=== PATIENT | male | born 1965 | race Caucasian/White ===

== ENCOUNTER 2022-06-16 10:13 | Inpatient (IN) | payer MEDICAID ==
[~2022-06-16] VITALS: Ht 175.3 cm; Wt 88.0 kg
[2022-06-16 10:38] LABS: BASOPHILS # (AUTO) 0.1 X10'3 (0-0.2); BASOPHILS % (AUTO) 1.4 % (0-1); EOSINOPHILS # (AUTO) 0.1 X10'3 (0-0.9); EOSINOPHILS % (AUTO) 2.5 % (0-6); HEMATOCRIT 47.6 % (42.0-52.0); HEMOGLOBIN 16.4 g/dl (14.0-17.9); LYMPHOCYTES # (AUTO) 1.5 X10'3 (1.1-4.8); LYMPHOCYTES % (AUTO) 27.5 % (21-51); MEAN CORPUSCULAR HEMOGLOBIN 33.4 PG (27.0-31.0); MEAN CORPUSCULAR HGB CONC 34.5 g/dL (33.0-36.5); MEAN CORPUSCULAR VOLUME 96.6 FL (78-98); MEAN PLATELET VOLUME 7.7 FL (7.4-10.4); MONOCYTES # (AUTO) 0.6 X10'3 (0-0.9); MONOCYTES % (AUTO) 10.9 % (2-12); NEUTROPHILS # (AUTO) 3.2 X10'3 (1.8-7.7); NEUTROPHILS % (AUTO) 57.7 % (42-75); PLATELET COUNT 319 X10'3 (140-440); RED BLOOD COUNT 4.92 X10'6 (4.70-6.10); WHITE BLOOD COUNT 5.6 X10'3 (4.5-11.0)
[2022-06-16 10:49] LABS: ALANINE AMINOTRANSFERASE 62 U/L (12-78); ALBUMIN 4.3 G/DL (3.4-5.0); ALBUMIN/GLOBULIN RATIO 1.3 (1.1-1.5); ALKALINE PHOSPHATASE 67 IU/L (46-116); ANION GAP 7 (8-16); ASPARTATE AMINO TRANSFERASE 33 U/L (10-37); BILIRUBIN,TOTAL 0.5 MG/DL (0.1-1.0); BLOOD UREA NITROGEN 14 MG/DL (7-18); BUN/CREATININE RATIO 12.6 (10.0-20.0); CALCIUM 9.3 MG/DL (8.5-10.1); CHLORIDE 99 MMOL/L (99-107); CREATININE 1.11 MG/DL (0.60-1.10); GLUCOSE 119 MG/DL (70-104); POTASSIUM 4.4 MMOL/L (3.5-5.1); SODIUM 134 MMOL/L (135-145); TOTAL CARBON DIOXIDE 27.6 MMOL/L (24-32); TOTAL PROTEIN 7.6 G/DL (6.4-8.2); eGFR 68 ML/MIN
[2022-06-16 10:55] LABS: MAGNESIUM 2.1 MG/DL (1.5-2.4)
[2022-06-16] MEDS ORDERED: ondansetron/PF 4mg/2ml inj IV PRN (13:50)
[2022-06-16] MEDS ORDERED: morphine 2 MG/ML inj. syringe IV PRN ×2 (13:50)
[2022-06-16] MEDS ORDERED: mag hydrox/Alum hydrox/simeth 30ml oral suspension PO PRN (13:50)
[2022-06-16] MEDS ORDERED: magnesium hydroxide 30ml (MOM) UD suspension PO PRN (13:50)
[2022-06-16] MEDS ORDERED: HYDROcodone/acetaminophen 5mg/325mg tablet PO PRN (13:50)
[2022-06-16] MEDS ORDERED: HYDROcodone/acetaminophen 10/325mg tab PO PRN (13:50)
[2022-06-16] MEDS ORDERED: acetaminophen 325mg tablet PO PRN ×2 (13:50)
[2022-06-16] MEDS ORDERED: nitroGLYCERIN 0.4mg SUBLingual tab SL PRN (13:50)
--- NOTE | 2022-06-16 14:28 | NUR ---
rn will obtain iv/get pt into gown and send to assigned room.
[2022-06-16] MEDS ORDERED: CITA20TA26 PO (14:48)
[2022-06-16] MEDS ORDERED: CYCL-1 PO (14:48)
[2022-06-16] MEDS ORDERED: OMEP20CA16 PO (14:48)
[2022-06-16] MEDS ORDERED: HYDR25TA5 PO (14:48)
[2022-06-16] MEDS ORDERED: LISI20TA28 PO (14:48)
[2022-06-16] MEDS ORDERED: ASPI81TA52 PO (14:48)
[2022-06-16 15:44] VITALS: BP 140/101
--- NOTE | 2022-06-16 15:44 | NUR ---
Patient in room U 3023. I have received report from Adrianne RN and had the opportunity to ask questions and assume patient care.Pt settled into room. No pain at this time. Addendum: 06/16/22 at 1811 by Rima Frazier RN Amended: Links added.
[2022-06-16] MEDS ORDERED: iohexol 350MG/ML 100ml bottle IV ONE (17:21)
--- NOTE | 2022-06-16 17:52 | NUR ---
pt down to CT scan
[2022-06-16 18:00] VITALS: BP 124/87
--- NOTE | 2022-06-16 18:08 | NUR ---
Problems reprioritized. Patient report given, questions answered & plan of care reviewed with Naeem LUND. Pt back from CT and echo tabby is now at bedside. Call light in reach. Addendum: 06/16/22 at 1808 by Rima Frazier RN Amended: Links added.
[2022-06-16 18:58] LABS: D-DIMER 1.81 MG/L FEU (0-0.50)
[2022-06-16] MEDS: docusate sod 100mg capsule PO SCH (19:16)
[2022-06-17] VITALS (15 sets, daily range): BP systolic 112–155; BP diastolic 69–93
--- NOTE | 2022-06-17 06:10 | NUR ---
Patient in room PCU 3023. I have received report from Naeem LUND and had the opportunity to ask questions and assume patient care.Pt awake and alert, Denies pain, POC reviewed with PT. Call light in reach. Addendum: 06/17/22 at 0631 by Rima Frazier RN Amended: Links added.
[2022-06-17 06:44] LABS: BASOPHILS # (AUTO) 0.1 X10'3 (0-0.2); BASOPHILS % (AUTO) 0.9 % (0-1); EOSINOPHILS # (AUTO) 0.2 X10'3 (0-0.9); EOSINOPHILS % (AUTO) 3.2 % (0-6); HEMATOCRIT 43.1 % (42.0-52.0); HEMOGLOBIN 15.1 g/dl (14.0-17.9); LYMPHOCYTES # (AUTO) 1.7 X10'3 (1.1-4.8); LYMPHOCYTES % (AUTO) 28.9 % (21-51); MEAN CORPUSCULAR HGB CONC 35.1 g/dL (33.0-36.5); MEAN CORPUSCULAR VOLUME 96.8 FL (78-98); MEAN PLATELET VOLUME 7.8 FL (7.4-10.4); MONOCYTES # (AUTO) 0.7 X10'3 (0-0.9); MONOCYTES % (AUTO) 11.8 % (2-12); NEUTROPHILS # (AUTO) 3.3 X10'3 (1.8-7.7); NEUTROPHILS % (AUTO) 55.2 % (42-75); PLATELET COUNT 239 X10'3 (140-440); RED BLOOD COUNT 4.45 X10'6 (4.70-6.10); RED CELL DISTRIBUTION WIDTH 13.2 % (11.5-14.5)
[2022-06-17 06:48] LABS: ALBUMIN 3.6 G/DL (3.4-5.0); ANION GAP 7 (8-16); BLOOD UREA NITROGEN 16 MG/DL (7-18); BUN/CREATININE RATIO 15.2 (10.0-20.0); CALCIUM 8.7 MG/DL (8.5-10.1); CHLORIDE 103 MMOL/L (99-107); CREATININE 1.05 MG/DL (0.60-1.10); GLUCOSE 102 MG/DL (70-104); POTASSIUM 3.9 MMOL/L (3.5-5.1); SODIUM 138 MMOL/L (135-145); TOTAL CARBON DIOXIDE 28.2 MMOL/L (24-32); eGFR 73 ML/MIN
[2022-06-17] MEDS ORDERED: aminophylline 250mg/10ml inj. IV PRN (07:05)
[2022-06-17] MEDS ORDERED: regadenoson 0.4mg/5ml syringe IV PRN (07:05)
[2022-06-17] MEDS ORDERED: nitroGLYCERIN 0.4mg SUBLingual tab SL PRN (07:05)
[2022-06-17] MEDS ORDERED: metoprolol tartrate 1mg/ml inj IV PRN (07:05)
[2022-06-17] MEDS: aspirin 81mg, enteric-coated 1 TAB TABLET.DR PO SCH (07:30)
[2022-06-17] MEDS: HYDROchlorothiazide 25mg tablet PO SCH (07:30)
[2022-06-17] MEDS: pantoprazole 40mg Tablet.DR PO SCH (07:30)
[2022-06-17] MEDS: lisinopril 20mg tablet PO SCH (07:31)
[2022-06-17] MEDS: citalopram 20mg tablet PO SCH (07:31)
[2022-06-17] MEDS: docusate sod 100mg capsule PO SCH ×2 (07:32→20:00)
[2022-06-17] MEDS ORDERED: aspirin 81mg, enteric-coated 1 TAB TABLET.DR PO SCH (08:00)
--- NOTE | 2022-06-17 08:41 | NUR ---
Pt down to [facility] scan
[2022-06-17] MEDS ORDERED: furosemide 20 MG/2 ML vial IV ONE (12:45)
[2022-06-17 13:25] LABS: C-REACTIVE PROTEIN 0.21 MG/DL (0.0-0.5)
--- NOTE | 2022-06-17 16:00 | NUR ---
DR Browning at bedside. Pt states he had all his questions answered. No new orders.
--- NOTE | 2022-06-17 18:04 | NUR ---
Problems reprioritized. Patient report given, questions answered & plan of care reviewed with Carole LUND. Pt eating dinner.Call Light in reach. Addendum: 06/17/22 at 1812 by Rima Frazier RN Amended: Links added.
--- NOTE | 2022-06-17 18:24 | NUR ---
Patient in room PCU 3023. I have received report from DORIAN LUND and had the opportunity to ask questions and assume patient care.
[2022-06-17] MEDS: cyclobenzaprine 10mg tablet PO PRN ×2 (19:28→22:40)
--- NOTE | 2022-06-17 19:59 | NUR ---
24 HR TELE DC'D BY MD LEONG, NO CONTRAINDICATION FROM CARDIOLOGY CONSULT; NO ISSUES WITH CHEST PAIN OR ARRYTHMIAS AT THIS TIME. MALIK LUND
[2022-06-17] MEDS: furosemide 20 MG/2 ML vial IV SCH (20:00)
[2022-06-17] MEDS ORDERED: temazepam 15mg capsule PO PRN (22:30)
[2022-06-18 02:00] VITALS: BP 99/68
[2022-06-18 06:00] VITALS: BP 111/69
--- NOTE | 2022-06-18 06:31 | NUR ---
Patient in room PCU 3023. I have received report from Steve LUND and had the opportunity to ask questions and assume patient care.
[2022-06-18 07:02] LABS: ALBUMIN 3.8 G/DL (3.4-5.0); ANION GAP 9 (8-16); BLOOD UREA NITROGEN 18 MG/DL (7-18); BUN/CREATININE RATIO 16.7 (10.0-20.0); CALCIUM 9.3 MG/DL (8.5-10.1); CHLORIDE 101 MMOL/L (99-107); CREATININE 1.08 MG/DL (0.60-1.10); GLUCOSE 103 MG/DL (70-104); POTASSIUM 3.5 MMOL/L (3.5-5.1); SODIUM 136 MMOL/L (135-145); eGFR 70 ML/MIN
[2022-06-18 07:16] LABS: BASOPHILS # (AUTO) 0.1 X10'3 (0-0.2); BASOPHILS % (AUTO) 1.4 % (0-1); EOSINOPHILS # (AUTO) 0.2 X10'3 (0-0.9); EOSINOPHILS % (AUTO) 4.2 % (0-6); HEMATOCRIT 46.5 % (42.0-52.0); HEMOGLOBIN 16.4 g/dl (14.0-17.9); LYMPHOCYTES # (AUTO) 1.9 X10'3 (1.1-4.8); LYMPHOCYTES % (AUTO) 33.5 % (21-51); MEAN CORPUSCULAR HEMOGLOBIN 33.9 PG (27.0-31.0); MEAN CORPUSCULAR HGB CONC 35.2 g/dL (33.0-36.5); MEAN CORPUSCULAR VOLUME 96.3 FL (78-98); MEAN PLATELET VOLUME 7.8 FL (7.4-10.4); MONOCYTES # (AUTO) 0.7 X10'3 (0-0.9); MONOCYTES % (AUTO) 13.2 % (2-12); NEUTROPHILS # (AUTO) 2.7 X10'3 (1.8-7.7); NEUTROPHILS % (AUTO) 47.7 % (42-75); PLATELET COUNT 252 X10'3 (140-440); RED BLOOD COUNT 4.83 X10'6 (4.70-6.10); WHITE BLOOD COUNT 5.6 X10'3 (4.5-11.0)
[2022-06-18] MEDS: HYDROchlorothiazide 25mg tablet PO SCH (08:41)
[2022-06-18] MEDS: docusate sod 100mg capsule PO SCH (08:41)
[2022-06-18] MEDS: citalopram 20mg tablet PO SCH (08:42)
[2022-06-18] MEDS: aspirin 81mg, enteric-coated 1 TAB TABLET.DR PO SCH (08:42)
[2022-06-18] MEDS: furosemide 20 MG/2 ML vial IV SCH (08:42)
[2022-06-18] MEDS: lisinopril 20mg tablet PO SCH (08:42)
[2022-06-18] MEDS: pantoprazole 40mg Tablet.DR PO SCH (08:43)
[2022-06-18 10:00] VITALS: BP 115/78
[2022-06-18] MEDS ORDERED: FURO40TA4 PO (12:32)
--- NOTE | 2022-06-18 13:38 | NUR ---
Patient alert and oriented in no apparent acute distress. Discussed with patient discharge instructions and new prescriptions. Patient verbalizes understanding of teaching and stated had no questions. Patient waiting for ride.
--- NOTE | 2022-06-18 14:19 | NUR ---
Patient dc'd with all personal belongings escorted out in wheelchair patient's transporter in lobby.
== END 2022-06-18 14:19 | disposition home or self-care (01) | DRG 144 ==
LOC: ER 10:14 → ED HOLD 13:54 → PCU 3S 15:04 → OBSVTOIN 16:58
PROVIDERS: ADMIT Internal Medicine; ATTEND Internal Medicine
PROC: B32T1ZZ Computerized Tomography (CT Scan) of Left Pulmonary Artery using Low Osmolar Contrast (ICD-10-PCS; principal; 2022-06-16)
PROC: B32S1ZZ Computerized Tomography (CT Scan) of Right Pulmonary Artery using Low Osmolar Contrast (ICD-10-PCS; 2022-06-16)
PROC: B3201ZZ Computerized Tomography (CT Scan) of Thoracic Aorta using Low Osmolar Contrast (ICD-10-PCS; 2022-06-16)
PROC: 4A02XM4 Measurement of Cardiac Total Activity, External Approach (ICD-10-PCS; 2022-06-17)
PROC: 3E033HZ Introduction of Radioactive Substance into Peripheral Vein, Percutaneous Approach (ICD-10-PCS; 2022-06-17)
DX: R06.09 Other forms of dyspnea (principal); F32.A Depression, unspecified; I10 Essential (primary) hypertension; K21.9 Gastro-esophageal reflux disease without esophagitis; Z79.82 Long term (current) use of aspirin; Z79.899 Other long term (current) drug therapy; Z87.891 Personal history of nicotine dependence; Z90.49 Acquired absence of other specified parts of digestive tract
CPT/HCPCS: 36415; 71045; 71270; 78452; 80048; 80053; 83735; 83880; 84443; 84484; 85025; 85379; 85651; 86140; 87081; 93005; 93017; 93306; 99285; A9500; G0378; J1940; J2785; J3490; Q9967

== ENCOUNTER 2023-08-27 12:40 | Outpatient (CLI) | payer MEDICAID, SELFPAY ==
[~2023-08-27 12:40] MED LIST: ASPI81TA52 PO; CITA20TA26 PO; CYCL-1 PO; LISI20TA28 PO; OMEP20CA16 PO
== END 2023-08-27 23:59 | disposition home or self-care (01) ==
LOC: RAD 12:40
PROVIDERS: ATTEND Student in an Organized Health Care Education/Training Program
DX: Z12.2 Encounter for screening for malignant neoplasm of respiratory organs (principal); S32.010A Wedge compression fracture of first lumbar vertebra, initial encounter for closed fracture; R91.1 Solitary pulmonary nodule; F17.210 Nicotine dependence, cigarettes, uncomplicated; X58.XXXA Exposure to other specified factors, initial encounter; Y93.89 Activity, other specified; Y92.89 Other specified places as the place of occurrence of the external cause; Y99.8 Other external cause status
CPT/HCPCS: 71271

== ENCOUNTER 2024-01-14 09:29 | Outpatient (CLI) | payer MEDICAID | END 2024-01-14 23:59 | disposition home or self-care (01) | LOC: RAD 09:29 | PROVIDERS: ATTEND Student in an Organized Health Care Education/Training Program | DX: K76.0 Fatty (change of) liver, not elsewhere classified (principal); R74.8 Abnormal levels of other serum enzymes; Z90.49 Acquired absence of other specified parts of digestive tract | CPT/HCPCS: 76700 ==